=== PATIENT | male | born 1945 | race Caucasian/White ===

== ENCOUNTER → 2016-12-07 | Day surgery (SDC) | payer BC ==
[2016-11-26 11:12] VITALS: BMI 27.0
--- NOTE | 2016-11-26 11:41 | PAT Medication Instructions ---
Service Date Nov 26, 2016. Current Home Medication List Aspirin (Aspirin Ec), 81 MG PO QPM Diclofenac Sodium (Topical) (Voltaren 1% Top Gel), 1 DOSE TP QID PRN for RN Fish Oil (Rayle-3), 1 CAP PO QAM Fluocinonide (Fluocinonide), 1 APPLN TOP BIS Metformin HCl (Metformin HCl ER), 1,000 MG PO BID Multivitamin (Multivitamin), 1 TAB PO QAM Tolterodine Tartrate (Detrol LA), 1 CAP PO BID [Colace], 1 TAB PO QPM [Vitamin B12], 1 TAB PO QAM [Vitamin C], 1 TAB PO QAM [Vitamin E], 1 TAB PO QAM Medication Instructions For Your Scheduled Surgery Aspirin (Aspirin Ec), 81 MG PO QPM (hold 7-10 days prior to surgery per surgeon instructions) - Hold the following medications 2 weeks prior to surgery: Vitamin E 1 TAB PO QAM Fish Oil (Rayle-3), 1 CAP PO QAM - Hold the following medications 24 hours prior to surgery: Fluocinonide (Fluocinonide), 1 APPLN TOP BIS Diclofenac Sodium (Topical) (Voltaren 1% Top Gel), 1 DOSE TP QID PRN for RN - Hold the following medications 48 hours prior to surgery: Metformin HCl (Metformin HCl ER), 1,000 MG PO BID - Hold the following medications the morning of surgery: Vitamin C 1 TAB PO QAM Vitamin B12 1 TAB PO QAM Multivitamin (Multivitamin), 1 TAB PO QAM Tolterodine Tartrate (Detrol LA), 1 CAP PO BID - Take the following medications as scheduled the night before surgery: Colace, 1 TAB PO QPM Tolterodine Tartrate (Detrol LA), 1 CAP PO BID If you have any questions please call us at [phone] or [phone] ( Kristen) or [phone]
[2016-11-26 12:13] LABS: BASO % 0.2 %; BASO ABS # 0.01 K/uL (0-0.2); COMPLETE YES; EOS % 1.1 %; HEMATOCRIT 44.1 % (42-52); MEAN CELL VOLUME 91.7 fL (80-100); MEAN CORPUSCULAR HEMOGLOBIN 31.4 pg (25-34); MEAN CORPUSCULAR HGB CONC 34.2 g/dl (32-36); MEAN PLATELET VOLUME 9.1 fL (7.4-10.4); MONO % 8.8 %; NEUT % 46.9 %; PLATELET COUNT 208 K/uL (130-400); RED BLOOD COUNT 4.81 M/uL (4.7-6.1); WHITE BLOOD COUNT 4.65 K/uL (4.8-10.8)
[2016-11-26 12:37] LABS: BUN/CREATININE RATIO 16.2 (10-20); CALCIUM 9.2 mg/dl (8.5-10.1); POTASSIUM 4.1 mmol/L (3.5-5.1)
[~2016-12-07] VITALS: Ht 177.8 cm; Wt 85.5 kg
[~2016-12-07] MED LIST: ASPI81TA28 PO; ATROPINE SULFATE 0.1 MG/ML 5ML SYR IV PRN; BUPIVACAINE/EPINEPHRINE 0.5% MPF 1:200,000 30 ML VIAL INJ ONE; CEFAZOLIN 2000 MG/60 ML D5W IV SCH; CEFOXITIN 2 GM IV ONE; COLACE PO; DEXAMETHASONE SOD INJ 4 MG/ML VIAL ONE; DICL1GEL12 TP; DTRSR/2 PO; EpHEDrine SULFATE INJ 50 MG/ML AMP IV PRN; EpHEDrine SULFATE INJ 50 MG/ML AMP ONE; FENTANYL CITRATE INJ 50 MCG/1 ML 2 ML VIAL IV PRN; FENTANYL CITRATE INJ 50 MCG/1 ML 2 ML VIAL ONE; FLUMAZENIL 0.1 MG/1 ML 10 ML VIAL IV PRN; FLUO0.0566 TOP; GLYCOPYRROLATE INJ 0.2 MG/ML VIAL ONE; HEPARIN SOD 5000 UNIT/0.5 ML CARP SQ SCH; HYDR-5688 PO; HYDROCODONE/ACETAMOPHEN 5/325MG TAB PO PRN; HYDROmorphone INJ 2 MG/ML SYR/VIAL IV PRN; IBUPROFEN 600 MG TAB PO PRN; KETOROLAC TROMETHAMINE 15 MG/ML VIAL IV. PRN; LABETALOL HCL IV 5 MG/ML 20ML IV PRN; LACTATED RINGER'S 1000ML 1,000 ML IV SCH; LIDOCAINE HCL 2% 2 ML VIAL (20MG/ML) ONE; MEPERIDINE HCL 25 MG/ML CARP IV PRN; METF-841 PO; MIDAZOLAM HCL 1 MG/ML 2ML VIAL ONE; MULT-506 PO; MoRPHine SULFATE 2 MG/ML CARP IV PRN; MoRPHine SULFATE 4 MG/ML 1 ML CARP\\VIAL IV PRN; NALOXONE HCL 0.4 MG/1 ML VIAL/CARP IV PRN; NEOSTIGMINE METHYLSULFATE 5 MG/5 ML SYR ONE; OMEG10007 PO; ONDANSETRON INJ 2 MG/ML 2 ML VIAL IV PRN; ONDANSETRON INJ 2 MG/ML 2 ML VIAL ONE; PHENYLEPHRINE 100MCG/ML 5ML SYR IV PRN; PHENYLEPHRINE HCL INJ 10 MG/ML VIAL ONE; PROPOFOL IV EMULSION 10 MG/ML 20 ML VIAL IV ONE; ROCURONIUM BROMIDE 10 MG/ML 5 ML VIAL ONE; SODIUM CHLORIDE 0.9% 1000ML 1,000 ML IV SCH; SUCCINYLCHOLINE CHLORIDE 20 MG/ML 10 ML VIAL IV ONE; VITAMIN B12 PO; VITAMIN C PO; VITAMIN E PO
[2016-12-07 05:41] VITALS: BP 170/87; PULSE 68; TEMP 36.3; O2SAT 97; Ht 177.8 cm; Wt 85.5 kg
--- NOTE | 2016-12-07 06:50 | History & Physical Bridge Note ---
H&P Re-Evaluation Bridge Note: I have examined the patient, reviewed the History & Physical and in the interval since the performance of the History & Physical I have noted the following changes of clinical significance: No changes noted
--- NOTE | 2016-12-07 06:52 | Discharge Instructions ---
Discharge Instructions Admission Reason for Admission: Umbilical Hernia Discharge Discharge Diagnosis / Problem: umbilical hernia Discharge Goals Goal(s): Decrease discomfort, Improve function Activity Recommendations Activity Limitations: as noted below Lifting Limitations: no more than 10 pounds Exercise/Sports Limitations: until after follow-up appointment May Resume Sexual Activity: after follow-up appointment Shower/Bathe: tomorrow . Instructions / Follow-Up Instructions / Follow-Up follow up Dr. Smith in 1-2 weeks. Current Hospital Diet Patient's current hospital diet: Discharge Diet Recommended Diet: Regular Diet Pending Studies Studies pending at discharge: no Laboratory Results Lipid Panel Test 10/08/16 07:51 Range/Units Triglycerides Level 77 0-150 mg/dl Cholesterol Level 187 0-200 mg/dl HDL Cholesterol 70 mg/dl Cholesterol/HDL Ratio 2.7 LDL Cholesterol, Calculated 102 mg/dl Medical Emergencies . Who to Call and When: Medical Emergencies: If at any time you feel your situation is an emergency, please call 911 immediately. . Non-Emergent Contact Non-Emergency issues call your: Primary Care Provider, Surgeon Call Non-Emergent contact if: temperature is above 101, wound has increased drainage, wound has increased redness, wound has increased pain . "Provider Documentation" section prepared by Yovany Smith. VTE Core Measure Inpt VTE Proph given/why not?: Unfractionated heparin SQ, SCD's
--- NOTE | 2016-12-07 07:44 | [facility] Operative Report ---
Operative Report Operative Date Dec 07, 2016. Pre-Operative Diagnosis Umbilical hernia Post-Operative Diagnosis umbilical hernia Procedure(s) Performed open umbilical hernia repair Surgeon Dr Smith Sod Farmer Surgeon(s) Rubens Bowers PA-C Estimated Blood Loss 5ml Findings small 1.5 cm hernia with omentum incarceration Disposition Recovery Room / PACU I attest to the content of the Intraoperative Record and any orders documented therein. Any exceptions are noted below.
--- NOTE | 2016-12-07 08:33 | Anesthesiology Progress Note ---
Anesthesia Post Op Note Date & Time Dec 07, 2016 at 08:34 Vital Signs Pain Intensity: 0 Vital Signs Past 12 Hours Date Time Temp Pulse Resp B/P Pulse Ox O2 Delivery O2 Flow Rate FiO2 12/07/16 08:30 63 16 94 12/07/16 08:30 63 16 12/07/16 08:28 131/84 12/07/16 08:25 67 17 12/07/16 08:25 36.0 65 19 146/87 95 Room Air 12/07/16 08:25 67 17 96 12/07/16 08:23 146/87 12/07/16 08:20 67 22 96 12/07/16 08:20 65 22 12/07/16 08:19 65 19 95 12/07/16 08:19 65 19 12/07/16 08:18 122/66 12/07/16 08:14 63 12 95 12/07/16 08:14 64 12 12/07/16 08:13 120/72 12/07/16 08:09 67 15 12/07/16 08:09 67 15 95 12/07/16 08:08 66 14 12/07/16 08:08 66 14 105/75 96 12/07/16 08:04 109/82 12/07/16 08:03 66 17 12/07/16 08:03 66 17 97 12/07/16 07:58 66 15 109/89 100 12/07/16 07:58 66 15 12/07/16 07:53 67 11 12/07/16 07:53 68 11 150/86 100 12/07/16 07:48 75 12 12/07/16 07:48 72 12 159/90 99 12/07/16 07:48 36.0 82 16 159/92 99 Mask 10 12/07/16 05:41 36.3 68 20 170/87 97 Room Air Notes Mental Status: alert / awake / arousable, participated in evaluation Pt Amnestic to Procedure: Yes Nausea / Vomiting: adequately controlled Pain: adequately controlled Airway Patency, RR, SpO2: stable & adequate BP & HR: stable & adequate Hydration State: stable & adequate Anesthetic Complications: no major complications apparent
--- NOTE | 2016-12-07 08:38 | OPERATIVE REPORT ---
DATE OF OPERATION: 12/07/2016 PREOPERATIVE DIAGNOSIS: Umbilical hernia. POSTOPERATIVE DIAGNOSIS: Same with omental incarcerated incision. PROCEDURE: Open umbilical hernia repair. SURGEON: Dr. Smith. DIGITAL CARTOGRAPHIC TECHNICIAN: Rubens Bowers PA-C. ESTIMATED BLOOD LOSS: 5 mL. COMPLICATIONS: No immediate. ANESTHESIA: General laryngeal mask airway. OPERATIVE NOTE: After informed consent was obtained, the patient taken the operating suite and placed in supine position. After successful placement of laryngeal mask airway the abdomen was shaved and sterilely prepped and draped in usual fashion. An infraumbilical curvilinear incision was made with 15 blade scalpel and carried down through the soft tissue using electrocautery. We carried this incision down to the fascia. I was then able to use a Arlette clamp to come around the top of the umbilicus. I was then able use electrocautery to divide the umbilical stalk as well as the hernia sac. Once we detached the umbilical stalk we opened the sac and found some omentum in it. We were able to dunk it back down into the abdominal cavity. I did perform a finger sweep to take down any underlying attachments. This left about a 1.5 cm defect. We primarily closed it using #1 Ethibond in an interrupted [id number] fashion. Once the defect was closed there really was not much tension on it and I opted not to use a mesh. We irrigated the wound. There was adequate hemostasis. We reattached the umbilicus using 0 Vicryl, attaching it back to the fascia. Irrigation was performed again and 3-0 Vicryl and 4-0 Monocryl were used to close the wound. Some Marcaine was injected around the area for postoperative analgesia and skin glue used as dressing. The patient was awakened, extubated, and transferred to recovery in stable condition. I attest to the content of the Intraoperative Record and any orders documented therein. Any exceptio ns are noted below.
[2016-12-07 08:40] VITALS: BP 165/86; PULSE 62; TEMP 36.8; O2SAT 95
[2016-12-07 09:10] VITALS: BP 154/84; PULSE 62; TEMP 36.5; O2SAT 93
[2016-12-07 09:40] VITALS: BP 131/87; PULSE 71; TEMP 36.4; O2SAT 94
== END | disposition home or self-care (01) ==
LOC: C.ACU 05:09
PROVIDERS: ATTEND Surgery
DX: K42.0 Umbilical hernia with obstruction, without gangrene (principal); Q23.1 Congenital insufficiency of aortic valve; E88.81 Metabolic syndrome and other insulin resistance; R35.0 Frequency of micturition; Z87.891 Personal history of nicotine dependence

== ENCOUNTER → 2017-10-11 | Outpatient (CLI) | payer BC ==
[~2017-10-11] MED LIST changes: -ATROPINE SULFATE 0.1 MG/ML 5ML SYR IV PRN; -BUPIVACAINE/EPINEPHRINE 0.5% MPF 1:200,000 30 ML VIAL INJ ONE; -CEFAZOLIN 2000 MG/60 ML D5W IV SCH; -CEFOXITIN 2 GM IV ONE; -DEXAMETHASONE SOD INJ 4 MG/ML VIAL ONE; -EpHEDrine SULFATE INJ 50 MG/ML AMP IV PRN; -EpHEDrine SULFATE INJ 50 MG/ML AMP ONE; -FENTANYL CITRATE INJ 50 MCG/1 ML 2 ML VIAL IV PRN; -FENTANYL CITRATE INJ 50 MCG/1 ML 2 ML VIAL ONE; -FLUMAZENIL 0.1 MG/1 ML 10 ML VIAL IV PRN; -GLYCOPYRROLATE INJ 0.2 MG/ML VIAL ONE; -HEPARIN SOD 5000 UNIT/0.5 ML CARP SQ SCH; -HYDR-5688 PO; -HYDROCODONE/ACETAMOPHEN 5/325MG TAB PO PRN; -HYDROmorphone INJ 2 MG/ML SYR/VIAL IV PRN; -IBUPROFEN 600 MG TAB PO PRN; -KETOROLAC TROMETHAMINE 15 MG/ML VIAL IV. PRN; -LABETALOL HCL IV 5 MG/ML 20ML IV PRN; -LACTATED RINGER'S 1000ML 1,000 ML IV SCH; -LIDOCAINE HCL 2% 2 ML VIAL (20MG/ML) ONE; -MEPERIDINE HCL 25 MG/ML CARP IV PRN; -MIDAZOLAM HCL 1 MG/ML 2ML VIAL ONE; -MoRPHine SULFATE 2 MG/ML CARP IV PRN; -MoRPHine SULFATE 4 MG/ML 1 ML CARP\\VIAL IV PRN; -NALOXONE HCL 0.4 MG/1 ML VIAL/CARP IV PRN; -NEOSTIGMINE METHYLSULFATE 5 MG/5 ML SYR ONE; -ONDANSETRON INJ 2 MG/ML 2 ML VIAL IV PRN; -ONDANSETRON INJ 2 MG/ML 2 ML VIAL ONE; -PHENYLEPHRINE 100MCG/ML 5ML SYR IV PRN; -PHENYLEPHRINE HCL INJ 10 MG/ML VIAL ONE; -PROPOFOL IV EMULSION 10 MG/ML 20 ML VIAL IV ONE; -ROCURONIUM BROMIDE 10 MG/ML 5 ML VIAL ONE; -SODIUM CHLORIDE 0.9% 1000ML 1,000 ML IV SCH; -SUCCINYLCHOLINE CHLORIDE 20 MG/ML 10 ML VIAL IV ONE
[2017-10-11 11:04] LABS: ALT/SGPT 25 U/L (12-78); BLOOD UREA NITROGEN 14 mg/dl (7-18); BUN/CREATININE RATIO 15.1 (10-20); CALCIUM 8.8 mg/dl (8.5-10.1); CARBON DIOXIDE 27 mmol/L (21-32); CHLORIDE 105 mmol/L (98-107); CHOLESTEROL 199 mg/dl (0-200); CREATININE 0.94 mg/dl (0.60-1.40); GLUCOSE 104 mg/dl (70-99); POTASSIUM 3.9 mmol/L (3.5-5.1); SODIUM 137 mmol/L (136-145)
[2017-10-11 11:05] LABS: BASO % 0.4 %; BASO ABS # 0.02 K/uL (0-0.2); COMPLETE YES; EOS % 1.3 %; HEMATOCRIT 45.2 % (42-52); IG% 0.2 %; LYMPH % 38.6 %; LYMPH ABS # 1.75 K/uL (1.2-3.4); MEAN CELL VOLUME 94.4 fL (80-100); MEAN CORPUSCULAR HEMOGLOBIN 31.7 pg (25-34); MEAN CORPUSCULAR HGB CONC 33.6 g/dl (32-36); MEAN PLATELET VOLUME 9.6 fL (7.4-10.4); MONO % 9.9 %; NEUT % 49.6 %; PLATELET COUNT 230 K/uL (130-400); RED BLOOD COUNT 4.79 M/uL (4.7-6.1); WHITE BLOOD COUNT 4.53 K/uL (4.8-10.8)
[2017-10-11 11:10] LABS: ALB/GLOB RATIO 0.9 (0.9-2); ALKALINE PHOSPHATASE 59 U/L (45-117); AST/SGOT 13 U/L (15-37); HDL CHOLESTEROL 66 mg/dl; LDL CHOLESTEROL CALCULATED 114 mg/dl; PROSTATE SPECIFIC ANTIGEN 0.597 ng/ml (0.000-4.000); TRIGLYCERIDES 95 mg/dl (0-150); VERY LOW DENSITY LIPOPROT CALC 19 mg/dl
[2017-10-11 12:10] LABS: ESTIMATED AVERAGE GLUCOSE 117 mg/dl; HA1C FLAG Normal (Normal)
== END | disposition home or self-care (01) ==
LOC: C.LABBC 07:28
PROVIDERS: ATTEND Nurse Practitioner Family
DX: E88.81 Metabolic syndrome and other insulin resistance (principal); N40.1 Benign prostatic hyperplasia with lower urinary tract symptoms

== ENCOUNTER → 2018-01-24 | Outpatient (CLI) | payer BC ==
[~2018-01-24] VITALS: Ht 177.8 cm; Wt 83.9 kg
[2018-01-26 08:14] VITALS: Ht 177.8 cm; Wt 83.9 kg
--- NOTE | 2018-02-04 09:24 | CODING QUERY MEDICAL NECESSITY ---
CQSUPPORTING DIAGNOSIS NEEDED A supporting diagnosis is required for the test/procedure performed on this patient in order for us to be reimbursed by the patient's insurance. Please provide a supporting diagnosis for the following test/procedure listed below next to the test name along with your signature. *If there is no additional diagnosis for this patient that would support the following test/procedure please document that below next to the test/procedure. Test(s)/Procedure(s) that require a supporting diagnosis: DOS 01/24/18 MEDICAL NUTRITION/DIABETES OUTPATIENT SELF MANAGEMENT TRAINING Provider Signature: Date: Thank you Fatoumata Castillo Health Information Management Once completed, please kindly fax back to [phone] For questions please call [phone]
== END | disposition home or self-care (01) ==
LOC: C.NRED 14:33
PROVIDERS: ATTEND Nurse Practitioner Family
DX: R73.03 Prediabetes (principal)